=== PATIENT | female | born 1955 | race Caucasian/White ===

== ENCOUNTER → 2022-08-12 08:49 | Outpatient (BNVA) | payer OTHER, SELFPAY | PROVIDERS: PCP Registered Nurse; Visit Provider Registered Nurse | DX: Z02.1 Encounter for pre-employment examination (principal) | CPT/HCPCS: 80307 ==

== ENCOUNTER 2022-10-30 17:13 | Emergency (ER) | payer MEDICARE, BC, SELFPAY ==
[2022-10-30 17:24] VITALS: BP 129/80; PULSE 55; RESP 18; TEMP 36.7; O2SAT 99; BMI 36.9
--- NOTE | 2022-10-30 18:05 | CTR_ITS ---
PROCEDURE INFORMATION: Exam: CT Maxillofacial Without Contrast Exam date and time: 10/30/2022 6:41 PM Age: 67 years old Clinical indication: Injury or trauma; Blunt trauma (contusions or hematomas); Nose and lip/oral cavity; Prior surgery; Surgery date: 6+ months; Surgery type: Deviated septum. Dental; Patient HX: Fall face first in parking lot. Abrasion to nose and upper lip. ; Additional info: Fall face trauma TECHNIQUE: Imaging protocol: Computed tomography of the face without contrast. Radiation optimization: All CT scans at this facility use at least one of these dose optimization techniques: automated exposure control; mA and/or kV adjustment per patient size (includes targeted exams where dose is matched to clinical indication); or iterative reconstruction. REPORTING DATA: Count of CT and Cardiac NM exams in prior 12 months: This patient has received 0 known CTs and 0 known cardiac nuclear medicine studies in the 12 months prior to the current study. COMPARISON: No relevant prior studies available. RADIATION DOSE METRICS: Total DLP (mGy-cm): 601.08 FINDINGS: Orbital cavities: Orbits are normal. Globes are unremarkable. Bones/joints: See Paranasal sinuses finding. Paranasal sinuses: Mild contour deformity is seen about the anterolateral right maxillary sinus wall without a definite fracture line, which could indicate old posttraumatic change or variation of normal. Subtle nondisplaced fracture inferolateral right maxillary sinus wall suggested. Axial images suggest nasal bone fracture, with mild cortical deformity on the right side. On the sagittal images distal nasal bone fracture is seen, with mild depression of the distal tip and a nondepressed fracture more proximal to this. No other fracture is seen. Soft tissues: Mild soft tissue swelling around the nasal region without fluid collection or hematoma. Nasal cavity: Suggestion of bilateral nasal antral windows. Mucosal sinus disease is seen about both maxillary sinuses, [id number]-left and to a lesser extent within the ethmoid sinuses and right frontal sinus. Nasal septum is near midline. Dental: Dental fillings with streak artifact noted. CT/CT facial bones wo con* [id number] IMPRESSION: 1. Distal nasal bone fracture and suggestion of subtle nondisplaced fracture inferolateral right maxillary sinus wall, as noted above. 2. Nasal antral windows. Mucosal sinus disease bilateral maxillary sinuses of [id number]-left, and to a lesser extent within the ethmoid sinuses and right frontal sinus.
--- NOTE | 2022-10-30 18:06 | W.ED.FALL ---
HPI - Fall General: Chief Complaint: Fall Stated Complaint: fell , hurt lip, nose injury Time Seen by Provider: 10/30/22 17:57 History of Present Illness: To the ER with complaints of fall and pain. Patient states she is walking [place] [facility] when she fell and tripped in a hole and landed on her left knee left hand and left nose with swelling and bleeding to her nose. Patient states the bleeding was controlled easily but when she felt her nose she felt that can grind together. Patient denies loss of consciousness or use of any type of anticoagulant. Review of Systems General: Reports: 10 or more systems reviewed and unremarkable except in HPI and below Physical Exam Const: COMMON NORMALS: no acute distress, average body habitus, patient oriented x3, no limitations, healthy appearing, alert and well nourished HENMT: COMMON NORMALS: normocephalic, hearing grossly normal bilaterally and external ears normal; external nose not normal (swelling with crepitus) HEAD & SCALP: normocephalic NOSE: external nose not normal (swelling with crepitus) EXTERNAL EAR: Yes external ears normal Eye: COMMON NORMALS: Equal, round and reactive pupils present, EOMs intact bilaterally, conjunctivae normal and no scleral icterus CONJUNCTIVA: Yes conjunctivae normal PUPIL: Yes Equal, round and reactive pupils present Neck/C-Spine: COMMON NORMALS: full ROM, no lymphadenopathy, supple, no meningeal signs, no JVD and Thyroid normal THYROID: Thyroid normal Lymph: LYMPHATIC: no lymphadenopathy noted Chest: COMMONS NORMALS: normal inspection of the chest and normal palpation of entire chest wall Resp: COMMON NORMALS: normal respiratory effort, No retractions, No use of accessory muscles and clear to auscultation bilaterally AUSCULTATION: clear to auscultation bilaterally Cardio: COMMON NORMALS: no JVD, regular rate, regular rhythm, S1 normal heart sound present, S2 normal heart sound present, No gallops present (Cardio), No clicks present (Cardio), No murmurs present (Cardio) and No rub (Cardio) RATE: regular rate RHYTHM: regular rhythm HEART SOUNDS: S1 normal heart sound present and S2 normal heart sound present GI: COMMON NORMALS: Normal to inspection, nondistended, normoactive bowel sounds present, Soft to palpation, non-tender, No hepatosplenomegaly present and no masses PALPATION: Yes Soft to palpation and Yes No hepatosplenomegaly present : COMMON NORMALS: Yes no CVA tenderness BLADDER/KIDNEY EXAM: Yes no CVA tenderness Back/Pelvis: COMMON NORMALS: no CVA tenderness Neuro: COMMON NORMALS: patient oriented x3 SENSORIUM/ORIENTATION: Yes alert MENINGEAL SIGNS: Yes no meningeal signs Course Vital Signs: Vital signs: Vital Signs Temperature 98.0 F 10/30/22 17:24 Pulse Rate 76 10/30/22 19:34 Respiratory Rate 17 10/30/22 19:34 Blood Pressure 128/67 10/30/22 18:23 Pulse Oximetry 100 10/30/22 19:34 Oxygen Delivery Me thod Room Air 10/30/22 19:34 MDM - Fall Medical Decision Making [facility]. Patient landed on her nose and right side of her face. Physical exam was performed CT scan was obtained which showed a distal nasal bone fracture and a subtle nondisplaced fracture of the inferolateral right maxillary sinus. Patient declined any pain medicine at this time. Patient be discharged home and a consult for case management to follow-up with an ENT will be placed. Differential Diagnosis Unlikely syncope, dislocation of shoulder region, fracture of wrist, compression fracture, concussion with loss of consciousness or concussion without loss of consciousness Medical Records I reviewed the patient's medical records. Lab Data I reviewed the patient's lab results. Radiology Impressions Face CT 10/30/22 18:05 IMPRESSION: 1. Distal nasal bone fracture and suggestion of subtle nondisplaced fracture inferolateral right maxillary sinus wall, as noted above. 2. Nasal antral windows. Mucosal sinus disease bilateral maxillary sinuses of [id number]-left, and to a lesser extent within the ethmoid sinuses and right frontal sinus. Discharge Plan Discharge Patient Disposition: Home Clinical Impression: Facial bones, closed fracture Qualifiers: Encounter type: initial encounter Facial bone/location: other facial bone Laterality: right Qualified Code(s): S02.81XA - Fracture of other specified skull and facial bones, right side, initial encounter for closed fracture Condition: Stable Discharge Orders: Discharge ED (Routine); Ordered 10/30/22 Ordered By: Joel Chavez Patient Instructions: Facial Fracture (ED) Activity Restrictions/Additional Instructions: You have been referred to case management for consult for ear nose and throat. They will probably do this Jason morning please anticipate a call from them if even have not heard from them by Wednesday please give them a call. Coding Level of Care Code ED Electronic Court Recorder for Jasmyne Khan
[2022-10-30 18:23] VITALS: BP 128/67; O2SAT 99
[2022-10-30 19:34] VITALS: PULSE 76; RESP 17; O2SAT 100
--- NOTE | 2022-11-02 08:58 | DCPLANNER ---
Addendum entered by Sangeetha Bhatt 11/19/22 09:53: Patient attended appointment scheduled with ENT Addendum entered by Sangeetha Bhatt 11/03/22 10:17: Patient has a follow up appointment scheduled for Sunday, November 06, 2022 at 10:[address] Dorman at ENT. Original Note: manager domestic had message to schedule a follow up appointment for patient with ENT. manager domestic sent patients information to the front office staff at ENT. Patients information will be printed and reviewed. Clinic will call patient with appointment information.
--- NOTE | 2022-11-03 10:14 | DCPLANNER ---
import manager called patient due to no primary care physician - patient is established with a provider in [place].
== END 2022-10-30 20:04 | disposition home or self-care (01) ==
PROVIDERS: Emergency Provider Emergency Medicine
DX: S02.2XXA Fracture of nasal bones, initial encounter for closed fracture (principal); S02.40CA Maxillary fracture, right side, initial encounter for closed fracture; W01.0XXA Fall on same level from slipping, tripping and stumbling without subsequent striking against object, initial encounter; Y92.481 Parking lot as the place of occurrence of the external cause
CPT/HCPCS: 70486; 99284

== ENCOUNTER → 2022-11-06 09:52 | Outpatient (BNVA) | payer MEDICARE, BC, SELFPAY | PROVIDERS: Visit Provider Otolaryngology | DX: S02.2XXA Fracture of nasal bones, initial encounter for closed fracture (principal); W01.0XXA Fall on same level from slipping, tripping and stumbling without subsequent striking against object, initial encounter | CPT/HCPCS: 99202; 99203 ==